=== PATIENT | female | born 1995 | race Caucasian/White ===

== ENCOUNTER 2017-02-14 22:27 | Emergency (ER) | payer OTHER ==
--- NOTE | ~2017-02-14 | ER ---
PATIENT'S NAME: NERIS GREGORY [facility] AGE: 21 Y [address] ROOM: [place] [address] LOCATION: [facility] ADMIT DATE: 02/14/2017 ER/Outpatient Report DISCHARGE DATE: 02/14/2017 FAMILY PHYSICIAN: Beto Hart MD ATTENDING PHYSICIAN: Li Pearson Time of Arrival: 2227 hours. Time of Evaluation: 2240 hours. CHIEF COMPLAINT: Left forearm laceration HISTORY OF PRESENT ILLNESS: This is a 21-year-old female who presents to the ER with a laceration to her left forearm. The patient states this happened approximately 20 minutes prior to arrival. She states she cut her forearm while she was taking some dishes out of the sink on the steak knife. She states that she is up to date on all her immunizations. She denies any other problems at this time. ALLERGIES: NO KNOWN ALLERGIES. MEDICAL HISTORY: Asthma, depression, PTSD, anxiety, previous self-cutter. PAST SURGERIES: None. SOCIAL HISTORY: Denies smoking, drug, or alcohol use. REVIEW OF SYSTEMS: CONSTITUTIONAL: Denies any change in weight or fatigue. MUSCULOSKELETAL: Weakness, myalgias. SKIN: She has a 7-cm laceration to her left forearm. PHYSICAL EXAMINATION: VITAL SIGNS: Height 5 feet 7 inches, stated; weight 101.9 kilograms, taken; blood pressure is 174/97; pulse 97; respirations 18; temperature 99.2 degrees tympanically; saturations 99% on room air. Mcgraw Coma Score is 15. GENERAL: Alert, calm, well-developed female, in no acute distress. EXTREMITIES: No clubbing or cyanosis. She has full range of motion of all limbs. SKIN: She has a 7-cm linear laceration noted to her left forearm. She has a smaller very superficial cut to her left forearm just superior to the deeper PATIENT'S NAME: NERIS GREGORY [facility] AGE: 21 Y [address] ROOM: [place] [address] LOCATION: [facility] ADMIT DATE: 02/14/2017 ER/Outpatient Report DISCHARGE DATE: 02/14/2017 FAMILY PHYSICIAN: Beto Hart MD ATTENDING PHYSICIAN: Li Pearson laceration that measures approximately 5 cm. She has several scars in that area from previous self-cuts. LABORATORY DATA AND X-RAYS: None were done. IMPRESSION: A 7-cm laceration to left forearm. I did numb the site with 1% lidocaine with epinephrine. Cleansed the site with Betadine, flushed with normal saline. Repaired the laceration using 4-0 Ethilon. The patient did tolerate this well. We did cleanse the area and placed the antibiotic ointment bandage to the area. We will dismiss her to home with a wound care handout. She may take Tylenol or ibuprofen as needed for pain control, and she should follow up with her primary care physician in 7 to 10 days for followup care. The patient understands and agrees with care. LAKSHMI RENNER PA-C FOR MD SABRINA LOPEZ/angela /[id number] d: t: 02/22/17 1657, OUTPATIENT REPORT
[~2017-02-14 22:27] MED LIST: DULERA 100 MCG/51 EA INH; INDERAL10 MG PO; LEXAPRO20 MG PO; NEURONTIN100 MG PO; PROVENTIL OR V6.7 GM INH; SEROQUEL25 MG PO; SINGULAIR10 MG PO; TRI-LINYAH TAB1 EACH PO
== END 2017-02-14 23:08 | disposition disaster alternative care site (69) ==
LOC: GACC 22:27
PROC: 0HQEXZZ Repair Left Lower Arm Skin, External Approach (ICD-10-PCS; principal; 2017-02-14)
DX: S51.812A Laceration without foreign body of left forearm, initial encounter (principal); J45.909 Unspecified asthma, uncomplicated; F32.9 Major depressive disorder, single episode, unspecified; F41.9 Anxiety disorder, unspecified; W26.0XXA Contact with knife, initial encounter